=== PATIENT | female | born 1925 | race Caucasian/White ===

== ENCOUNTER 2016-09-26 16:13 | Inpatient (IN) | payer OTHER ==
[~2016-09-26] VITALS: Ht 165.1 cm; Wt 55.3 kg
[2016-09-26] MEDS ORDERED: IV NORMAL SALINE 1000 ML BAG IV ONE (16:30)
--- NOTE | 2016-09-26 16:45 | NUR ---
Pt GREGG CRISOSTOMO from [facility], reports that staff stated pt was ALOC, baseline A&Ox3, altered this AM; also pt reportedly has had diarrhea x 2-3 days. Pt responds to pain by w/d and moaning/grimacing. Skin pale, PERRLA, [id number]. No distress noted.
[2016-09-26 16:52] LABS: BASOPHILS # (AUTO) 0.1 K/uL (0.0-8.0); BASOPHILS % (AUTO) 1.7 % (0.0-2.0); EOSINOPHILS % (AUTO) 0.5 % (0.0-7.0); HEMATOCRIT 32.1 % (37-47); HEMOGLOBIN 10.6 G/DL (12.0-16.0); LYMPHOCYTES # (AUTO) 1.2 K/uL (20.0-40.0); LYMPHOCYTES % (AUTO) 17.1 % (20.5-51.5); MEAN CORPUSCULAR HEMOGLOBIN 28.3 UUG (27.0-31.0); MEAN CORPUSCULAR HGB CONC 33 g/dL (32.0-37.0); MEAN CORPUSCULAR VOLUME 85.3 FL (81.0-99.0); MONOCYTES # (AUTO) 0.4 K/uL (2.0-10.0); MONOCYTES % (AUTO) 5.8 % (0.0-11.0); NEUTROPHILS # (AUTO) 5.3 K/uL (1.8-8.9); NEUTROPHILS % (AUTO) 74.9 % (38.5-71.5); PLATELET COUNT (AUTO) 155 K/UL (150-450); RED BLOOD CELL COUNT(AUTO) 3.76 MIL/UL (4.2-5.4); RED CELL DISTRIBUTION WIDTH 18.1 % (11.5-14.5)
[2016-09-26 17:05] LABS: ETHANOL < 3 MG/DL (0-0)
[2016-09-26 17:07] LABS: AMMONIA 15 umol/L (11-32)
[2016-09-26 17:11] LABS: TROPONIN I 0.179 ng/mL (0.00-0.056)
[2016-09-26 17:20] LABS: ACETAMINOPHEN 6.9 ug/mL (10-30); ALANINE AMINOTRANSFERASE 15 U/L (14-59); ALKALINE PHOSPHATASE 386 U/L (50-136); ASPARTATE AMINOTRANSFERASE 42 U/L (15-37); BILIRUBIN,DIRECT 0.2 mg/dL (0.0-0.2); BILIRUBIN,TOTAL 0.5 mg/dL (0.2-1.0); CALCIUM 7.7 mg/dL (8.5-10.1); CARBON DIOXIDE 25 mmol/L (21-32); CHLORIDE 92 mmol/L (98-107); CREATININE 0.6 mg/dL (0.6-1.3); GLUCOSE 130 mg/dL (74-106); POTASSIUM 3.2 mmol/L (3.5-5.1); SODIUM SERUM 130 mmol/L (136-145); TOTAL PROTEIN, SERUM 5.3 g/dL (6.4-8.2); UREA NITROGEN, BLOOD 37 mg/dL (7-18)
[2016-09-26] MEDS ORDERED: OMEP20TA68 PO (17:24)
[2016-09-26] MEDS ORDERED: VENL75TA7 PO (17:24)
[2016-09-26] MEDS ORDERED: MODA200T30 PO (17:24)
[2016-09-26] MEDS ORDERED: ALEN70TA45 PO (17:24)
[2016-09-26] MEDS ORDERED: COLL30OI TOP (17:24)
[2016-09-26 17:25] LABS: ALBUMIN 1.4 g/dL (3.4-5.0); LACTIC ACID 0.9 mmol/L (0.4-2.0)
[2016-09-26] MEDS ORDERED: KETAMINE (17:32)
[2016-09-26] MEDS ORDERED: CIPR250S2 PO (17:32)
[2016-09-26] MEDS ORDERED: TRAZ-147 PO (17:32)
[2016-09-26] MEDS ORDERED: MIRT15TA7 PO (17:32)
[2016-09-26] MEDS ORDERED: GABA-532 PO (17:32)
[2016-09-26] MEDS ORDERED: VANC125C2 PO (17:32)
[2016-09-26 17:57] LABS: THYROID STIMULATING HORMONE 7.881 mIU/mL (0.358-3.740)
[2016-09-26 17:58] LABS: *BLOOD, URINE 3+ (NEGATIVE); *CLARITY,URINE CLOUDY (CLEAR); *COLOR,URINE DARK YELLOW (YELLOW); *KETONES,URINE 1+ (NEGATIVE); *PROTEIN,URINE 2+ (NEGATIVE); *UROBILINOGEN,URINE 0.2 E.U./dl (NORMAL); LEUKOCYTE ESTERASE ,URINE 3+ (NEGATIVE); NITRITE, URINE NEGATIVE (NEGATIVE); PH,URINE 5.5 (5.0-8.0); UGLUCOSE NEGATIVE (NEGATIVE)
[2016-09-26] MEDS ORDERED: IV NS 1000 ML 1,000 ML IV ONE (18:00)
[2016-09-26 18:01] LABS: *BILIRUBIN,URIN 2+ (NEGATIVE)
[2016-09-26 18:10] LABS: BACTERIA,URINE MODERATE /HPF (NONE SEEN); RBC,URINE 80-100 /HPF (0-3); SQUAMOUS EPITHELIAL CELL,UR FEW /HPF (NONE SEEN); WBC,URINE TNTC /HPF (0-3)
[2016-09-26 18:11] LABS: ICTOTEST POSITIVE (NEGATIVE)
[2016-09-26] MEDS ORDERED: ONDANSETRON 4 MG/2 ML VIAL IV PRN (18:15)
[2016-09-26] MEDS ORDERED: ACETAMINOPHEN 650 MG SUPP.RECT RC PRN (18:15)
[2016-09-26] MEDS ORDERED: CEFTRIAXONE 1 G in IV DEXTROSE 5% 50 ML IV ONE (18:30)
--- NOTE | 2016-09-26 19:00 | NUR ---
care endorsed by dayshift nurse, pt resting in bed, arousable to touch, no resp distress noted or reported upon assessment... will monitor for safety, pain, and comfort...
--- NOTE | 2016-09-26 19:29 | NUR ---
pressure ulcer on coccyx, appx [id number]
[2016-09-26] MEDS ORDERED: CEFTRIAXONE 1 G VIAL ONE ×2 (19:40→19:41)
--- NOTE | 2016-09-26 19:50 | NUR ---
Pt. admitted to ccu bed 2 , under care of Dr. Judy Wiggins, Belongs List completed, pt is resting in bed, no resp distress noted or reported upon transfer assessment...
[2016-09-26 20:00] VITALS: BP 99/50
[2016-09-26] MEDS ORDERED: ASPIRIN 300 MG RECTAL SUPP RC ONE (20:00)
--- NOTE | 2016-09-26 20:15 | NUR ---
Received patient from Emergency, report received from ErikRN 15 minutes before. Tranferred to CCU via gurney, 1st step mattress in place. bedbath rendered to pt. Hooked to court recording monitor, ST/AFIB in court recording monitor. unresponsive except when being moved. Multiple bruises and sacral pressure ulcer full thickness noted with crate/tunnel, see pictures in the chart for details.
[2016-09-26] MEDS ORDERED: Z GUARD REMEDY PASTE 57 GM TUBE TOP PRN (20:30)
[2016-09-26 21:00] VITALS: BP 107/65
[2016-09-26] MEDS: ENOXAPARIN SODIUM 60 MG/0.6 ML DISP.SYRIN SQ SCH (21:08)
[2016-09-26] MEDS: POTASSIUM CHLORIDE 20 MEQ in IV NS 1000 ML 1,000 ML IV PRN (21:09)
[2016-09-26 22:00] VITALS: BP 108/44
[2016-09-26] MEDS: Z GUARD REMEDY PASTE 57 GM TUBE TOP SCH (22:40)
[2016-09-26 23:00] VITALS: BP 103/56
[2016-09-26] MEDS ORDERED: AMIODARONE HCL IV 900 MG in IV DEXTROSE 5% 482 ML IV PRN (23:00)
[2016-09-27] VITALS (86 sets, daily range): BP systolic 73–156; BP diastolic 26–80
[2016-09-27] MEDS ORDERED: VANCOMYCIN 1G/D5W 200 ML PIGGYBACK IV ONE (00:30)
[2016-09-27] MEDS ORDERED: VANCOMYCIN IV 200 ML ONE (01:17)
[2016-09-27] MEDS ORDERED: AMIODARONE HCL 150 MG/3 ML VIAL IV ONE (01:27)
--- NOTE | 2016-09-27 01:30 | NUR ---
Pt's HR unstable 120's, started w/ Amiodarone 1mg/min 33.3mls/hr.BP was on the low side.
--- NOTE | 2016-09-27 02:05 | NUR ---
ST MED ONCE Amiodarone pulled from pyxis 0127 and administered as ordered. See eMAR Addendum: 09/27/16 at 0640 by LUISANA ZEPEDA RN Neosynephrine pulled from pyxis 0341; administered as ordered. See eMAR
[2016-09-27] MEDS: PHENYLEPHRINE IV 20 MG in IV DEXTROSE 5% 250 ML IV PRN ×2 (03:36→07:04)
[2016-09-27] MEDS ORDERED: PHENYLEPHRINE 10 MG/1 ML VIAL ONE ×2 (03:41→07:04)
--- NOTE | 2016-09-27 03:45 | NUR ---
BP was on 70's consistently inspite of trendelenburg position, started Neosynephrine 100mcg/min..
[2016-09-27 05:31] LABS: BILIRUBIN,TOTAL 0.3 mg/dL (0.2-1.0); CALCIUM 7.5 mg/dL (8.5-10.1); CREATININE 0.7 mg/dL (0.6-1.3); PHOSPHOROUS 3.2 mg/dL (2.5-4.9); POTASSIUM 3.2 mmol/L (3.5-5.1)
[2016-09-27 05:32] LABS: BASOPHILS % (AUTO) 0.1 % (0.0-2.0); EOSINOPHILS # (AUTO) 0.1 K/uL (0.0-0.7); EOSINOPHILS % (AUTO) 0.7 % (0.0-7.0); HEMATOCRIT 30.9 % (37-47); HEMOGLOBIN 10.4 G/DL (12.0-16.0); LYMPHOCYTES # (AUTO) 0.7 K/uL (20.0-40.0); LYMPHOCYTES % (AUTO) 7.4 % (20.5-51.5); MEAN CORPUSCULAR HGB CONC 34 g/dL (32.0-37.0); MEAN CORPUSCULAR VOLUME 85.9 FL (81.0-99.0); MONOCYTES # (AUTO) 0.4 K/uL (2.0-10.0); NEUTROPHILS # (AUTO) 8.5 K/uL (1.8-8.9); NEUTROPHILS % (AUTO) 87.8 % (38.5-71.5); PLATELET COUNT (AUTO) 215 K/UL (150-450); WHITE BLOOD COUNT (AUTO) 9.7 K/UL (4.0-11.2)
[2016-09-27 05:40] LABS: THYROID STIMULATING HORMONE 6.747 mIU/mL (0.358-3.740)
[2016-09-27 05:41] LABS: ALBUMIN 1.3 g/dL (3.4-5.0); MAGNESIUM 1.1 mg/dL (1.8-2.4)
--- NOTE | 2016-09-27 06:45 | NUR ---
Sent stool (little) for c.diff and OB to lab including wound sample for culture.
--- NOTE | 2016-09-27 07:04 | NUR ---
Neosynephrine pulled from [place] this AM. Administered as ordered, see eMAR
--- NOTE | 2016-09-27 07:20 | NUR ---
Report to SALMA Jaime
--- NOTE | 2016-09-27 07:30 | NUR ---
BP trending down with neosynephrine 100mcg/min, increased to 120mcg then to 130mcg/min. Latest BP is 94's/50's.
[2016-09-27] MEDS: Z GUARD REMEDY PASTE 57 GM TUBE TOP SCH ×2 (08:01→20:57)
[2016-09-27] MEDS: PANTOPRAZOLE SODIUM 40 MG VIAL IV SCH (08:01)
[2016-09-27] MEDS: ASPIRIN 300 MG RECTAL SUPP RC SCH (08:01)
[2016-09-27] MEDS: ENOXAPARIN SODIUM 60 MG/0.6 ML DISP.SYRIN SQ SCH (08:02)
[2016-09-27] MEDS ORDERED: PHENYLEPHRINE IV 80 MG in IV DEXTROSE 5% 250 ML IV PRN (10:00)
--- NOTE | 2016-09-27 10:06 | NUR ---
Clinical Pharmacy Note: Vancomycin Dosing per Pharmacy Subjective: Vancomycin IV to start on this 89 yo female for suspected infection (waiting for MD note). Patient received vancomycin 1gm IVPB x1 today at 0100. Objective: BUN 34/Scr 0.7 WBC 9.7 Temperature 96.1 ht 5'5'' wt 120lb Assessment/Plan: Will start vancomycin 750mg IVPB q26hr for predicted vancomycin trough level of 16 mcg/ml at steady state. 1st dose is due tomorrow at 0400. Plan to draw trough level before 4th dose (not yet ordered). Will continue to monitor renal function. Will follow daily.
[2016-09-27] MEDS ORDERED: BUMETANIDE 1 MG/4 ML VIAL IV ONE (13:00)
[2016-09-27] MEDS: POTASSIUM CHLORIDE 50 ML IV SCH ×5 (13:50→18:30)
[2016-09-27] MEDS: POTASSIUM CHLORIDE 20 MEQ in IV NS 1000 ML 1,000 ML IV PRN (13:50)
[2016-09-27] MEDS: MAGNESIUM SULFATE/D5W 100 ML IV SCH ×5 (13:51→18:30)
[2016-09-27] MEDS ORDERED: CEFTRIAXONE 1 G in IV DEXTROSE 5% 50 ML IV SCH (19:00)
[2016-09-27] MEDS: MORPHINE SULFATE 2 MG/1 ML DISP.SYRIN IV PRN (19:45)
[2016-09-27] MEDS: CEFTRIAXONE 1 G in IV DEXTROSE 5% 50 ML IV SCH (19:46)
--- NOTE | 2016-09-27 20:00 | NUR ---
Lethargic, groaning/moaning despite nursing comfort measures. Given Morphine IV with immediate relief. Improved rhythm rate 80's. Amiodarone drip to complete soon. Also improved BP. Neosynephrine drip titrating. Multiple wounds, see photos. Await operations trainer to consult. Please see CCU flowsheet for full assessment and clinical data.
--- NOTE | 2016-09-27 20:30 | NUR ---
Le (neighbor and long time friend) here for sometime. States pt does not have any family in the area. DPOA/grandson reportedly in [place]. She states she has spoken with MD about pt condition. Very appreciative of care.
[2016-09-27] MEDS: ATORVASTATIN 10 MG TABLET PO SCH (20:58)
[2016-09-28] VITALS (35 sets, daily range): BP systolic 94–130; BP diastolic 39–70
[2016-09-28] MEDS: MORPHINE SULFATE 2 MG/1 ML DISP.SYRIN IV PRN ×4 (01:04→14:16)
[2016-09-28] MEDS ORDERED: VANCOMYCIN IV 750 MG in IV DEXTROSE 5% 250 ML IV SCH (04:00)
[2016-09-28 05:23] LABS: BASOPHILS % (AUTO) 0.1 % (0.0-2.0); EOSINOPHILS # (AUTO) 0.1 K/uL (0.0-0.7); EOSINOPHILS % (AUTO) 1.9 % (0.0-7.0); HEMATOCRIT 27.5 % (37-47); HEMOGLOBIN 9.5 G/DL (12.0-16.0); LYMPHOCYTES # (AUTO) 1.5 K/uL (20.0-40.0); LYMPHOCYTES % (AUTO) 19.8 % (20.5-51.5); MEAN CORPUSCULAR HEMOGLOBIN 29.9 UUG (27.0-31.0); MEAN CORPUSCULAR HGB CONC 35 g/dL (32.0-37.0); MEAN CORPUSCULAR VOLUME 86.6 FL (81.0-99.0); MONOCYTES # (AUTO) 0.9 K/uL (2.0-10.0); NEUTROPHILS # (AUTO) 5.3 K/uL (1.8-8.9); NEUTROPHILS % (AUTO) 67.2 % (38.5-71.5); PLATELET COUNT (AUTO) 200 K/UL (150-450); RED BLOOD CELL COUNT(AUTO) 3.18 MIL/UL (4.2-5.4); WHITE BLOOD COUNT (AUTO) 7.8 K/UL (4.0-11.2)
[2016-09-28 05:36] LABS: BILIRUBIN,TOTAL 0.3 mg/dL (0.2-1.0); CALCIUM 7.4 mg/dL (8.5-10.1); CREATININE 0.7 mg/dL (0.6-1.3); MAGNESIUM 2.3 mg/dL (1.8-2.4); PHOSPHOROUS 2.8 mg/dL (2.5-4.9); POTASSIUM 4.5 mmol/L (3.5-5.1); TOTAL PROTEIN, SERUM 4.6 g/dL (6.4-8.2)
[2016-09-28 05:53] LABS: ALBUMIN 1.1 g/dL (3.4-5.0)
--- NOTE | 2016-09-28 06:00 | NUR ---
Requiring Morphine for max comfort. Weaned off Neosynephrine drip at 0500 and VS remained stable. Contact precautions observed pending result of CDiff. Please see CCU flowsheet for trends and clinical data.
[2016-09-28 06:09] LABS: BAND % (MANUAL) 3 % (0-10); LYMPHOCYTES % (MANUAL) 14 % (20-40); MONOCYTES % (MANUAL) 3 % (2-10); NEUTROPHILS % (MANUAL) 80 % (42-75)
[2016-09-28 06:10] LABS: PLATELET ESTIMATE ADEQUATE
[2016-09-28] MEDS: POTASSIUM CHLORIDE 20 MEQ in IV NS 1000 ML 1,000 ML IV PRN (09:31)
[2016-09-28] MEDS: PANTOPRAZOLE SODIUM 40 MG VIAL IV SCH (09:35)
[2016-09-28] MEDS: ASPIRIN 300 MG RECTAL SUPP RC SCH (09:35)
[2016-09-28] MEDS: Z GUARD REMEDY PASTE 57 GM TUBE TOP SCH ×2 (09:36→20:32)
--- NOTE | 2016-09-28 09:56 | NUR ---
medicated for generalized pain specially with turning. reassessed with relief Addendum: 09/28/16 at 1426 by SHERICE BANDA RN Amended: Links added.
--- NOTE | 2016-09-28 11:30 | NUR ---
seen by dr chao orders received. Addendum: 09/28/16 at 1305 by SHERICE BANDA RN Amended: Links added.
--- NOTE | 2016-09-28 13:54 | NUR ---
report given to Deepak MARSH MS2 bleach mixer here to evaluate wound and skin issues. Addendum: 09/28/16 at 1355 by SHERICE BANDA RN Amended: Links added.
--- NOTE | 2016-09-28 14:11 | NUR ---
WOUND CARE CONSULT: PT PRESENTS WITH MULTIPLE WOUNDS, PRESENT ON ADMISSION INCLUDING PURULENT UNSTAGEABLE SACRAL ULCER AND MULTIPLE DEEP TISSUE INJURIES. RECOMMENDATIONS MADE FOR WOUND CARE AND SKIN PROTECTION. DISCUSSED WITH NURSING STAFF. PT ON FIRST STEP MATTRESS. RECOMMEND SURGICAL CONSULT FOR SACRAL ULCER. IN AGREEMENT WITH PLAN OF CARE. Addendum: 09/28/16 at 1413 by RADHA RUBI RN Amended: Links added.
[2016-09-28] MEDS ORDERED: SODIUM HYPOCHLORITE 0.125% 473 ML BOTTLE TP SCH (14:15)
--- NOTE | 2016-09-28 14:27 | NUR ---
medicated for generalized discomfort. Addendum: 09/28/16 at 1427 by SHERICE BANDA RN Amended: Links added.
--- NOTE | 2016-09-28 14:42 | NUR ---
Clinical Pharmacy Note: Vancomycin Dosing per Pharmacy Subjective: Vancomycin IV to continue on this 89 yo female for suspected infection (waiting for MD note). Patient received vancomycin 1gm IVPB x1 today at 0100. Objective: BUN 24/Scr 0.7 WBC 7.8 Temperature 97.8 ht 5'5'' wt 120lb Assessment/Plan: Will continue vancomycin 750mg IVPB q26hr for predicted vancomycin trough level of 16 mcg/ml at steady state. 1st dose was today at 0400. Plan to draw trough level before 4th dose (not yet ordered). Will continue to monitor renal function. Will follow daily.
--- NOTE | 2016-09-28 15:00 | NUR ---
received thru fax mrsa result. positive mrsa nares. call to dr chao. Addendum: 09/28/16 at 1924 by SHERICE BANDA RN Amended: Links added. Addendum: 09/28/16 at 1926 by SHERICE BANDA RN Amended: Links added. Addendum: 09/28/16 at 1928 by SHERICE BANDA RN Amended: Links added.
[2016-09-28] MEDS ORDERED: CEFA1VIA3 IV (15:21)
[2016-09-28] MEDS ORDERED: SODI473S8 TP (15:21)
[2016-09-28] MEDS ORDERED: MENT71OI TOP ×2 (15:21)
[2016-09-28] MEDS ORDERED: Morphine Sulfate IV (15:21)
[2016-09-28] MEDS ORDERED: PANT40VI IV (15:21)
[2016-09-28] MEDS ORDERED: RXVAN XX (15:21)
[2016-09-28] MEDS ORDERED: ACET650S24 RC (15:21)
[2016-09-28] MEDS ORDERED: ASPI300S RC (15:21)
--- NOTE | 2016-09-28 15:54 | NUR ---
The patient will be transferred to [facility] per Rosie Lee CM [ ; ]. The admitting MD will be Dr. Moreno and they will call the unit once they have a bed available for the phone number for the report. Dr. Akhtar had been in contact with [facility] [place] MD, Dr. Field. They have agreed to transfer the patient with a physician in the ambulance. Left a message to the patient's grandson, Koko Herrmann [ ], about the discharge and spoke to the patient's local contact, [place] [ ], who was in agreement with the transfer as long as a physician is in the ambulance. [facility] will be arranging for the ambulance transfer. Updated the patient's CCU RN, Magaly, on her discharge plan. Addendum: 09/28/16 at 1606 by MUSHTAQ CONNER CM[facility]
--- NOTE | 2016-09-28 16:00 | NUR ---
call from foster care case manager. Patient is being transferred to [facility] [place]. transfer papers were processed. called report to Kaycee. Addendum: 09/28/16 at 1926 by SHERICE BANDA RN Amended: Links added. Addendum: 09/28/16 at 1928 by SHERICE BANDA RN Amended: Links added.
--- NOTE | 2016-09-28 17:00 | NUR ---
wound photos documented. see chart Addendum: 09/28/16 at 1929 by SHERICE BANDA RN Amended: Links added.
--- NOTE | 2016-09-28 19:15 | NUR ---
report given to Sharona Addendum: 09/28/16 at 1931 by SHERICE BANDA RN Amended: Links added.
[2016-09-28] MEDS: CEFTRIAXONE 1 G in IV DEXTROSE 5% 50 ML IV SCH (20:00)
[2016-09-28] MEDS: ATORVASTATIN 10 MG TABLET PO SCH (20:32)
--- NOTE | 2016-09-28 21:25 | NUR ---
Transferred to Telemetry @ [place], [place] at this time. [facility] with MD provided by [place].
== END 2016-09-28 21:25 | disposition short-term general hospital (02) | DRG 871 ==
LOC: ER 16:13 → CCU 19:47
PROVIDERS: ADMIT Internal Medicine; ATTEND Internal Medicine
DX: A41.9 Sepsis, unspecified organism (principal); I21.4 Non-ST elevation (NSTEMI) myocardial infarction; J69.0 Pneumonitis due to inhalation of food and vomit; E43 Unspecified severe protein-calorie malnutrition; R65.21 Severe sepsis with septic shock; I63.9 Cerebral infarction, unspecified; L89.154 Pressure ulcer of sacral region, stage 4; G92 Toxic encephalopathy; N17.0 Acute kidney failure with tubular necrosis; N39.0 Urinary tract infection, site not specified; A04.7 Enterocolitis due to Clostridium difficile; D68.59 Other primary thrombophilia; E87.1 Hypo-osmolality and hyponatremia; J90 Pleural effusion, not elsewhere classified; I42.9 Cardiomyopathy, unspecified; J98.11 Atelectasis; F05 Delirium due to known physiological condition; E86.0 Dehydration; I48.91 Unspecified atrial fibrillation; F03.90 Unspecified dementia, unspecified severity, without behavioral disturbance, psychotic disturbance, mood disturbance, and anxiety; K80.50 Calculus of bile duct without cholangitis or cholecystitis without obstruction; K57.30 Diverticulosis of large intestine without perforation or abscess without bleeding; Z86.73 Personal history of transient ischemic attack (TIA), and cerebral infarction without residual deficits; Z90.49 Acquired absence of other specified parts of digestive tract; G62.9 Polyneuropathy, unspecified; D64.9 Anemia, unspecified; I67.2 Cerebral atherosclerosis; I70.0 Atherosclerosis of aorta; E87.6 Hypokalemia
CPT/HCPCS: 36415; 70030-TC; 70450; 71010; 83550; 83605; 83735; 84100; 84443; 85025; 85730; 87040; 87070; 87077; 87086; 93005; 93307; 93880; A4217; C9113; G0480-TC; G6040-TC; J0282; J0696; J1650; J2270; J2370; J2405; J3370; J3475; J3480; J3490; J7030; J7060